=== PATIENT | male | born 1970 | race Caucasian/White ===

== ENCOUNTER 2016-09-07 10:17 | Emergency (ER) | payer OTHER ==
--- NOTE | ~2016-09-07 | CR173 ---
[facility] A Service of [facility] RADIOLOGY TEXT RESULTS PATIENT: AN GAYLE LOCATION: SED : [birth year] UNIT #: [id number] AGE: [address]: Mark Hyde MD SEX: M ORDER DR: [id number] [place] [id number] E MR#: [id number] Acc #: [id number] NAME: AN GAYLE : 1970 SEX: M STUDY DATE/TIME: 09/07/2016 10:26 UNIT: SED ROOM: STUDY DESCRIPTION: CR Knee 3 Views Rt Attending Physician: Mark Hyde M.D. Ordering Physician: Mark Hyde M.D. Primary Care Physician: Griselda Geller A.P.R.N. MEDICAL IMAGING REPORT This report is preliminary unless electronic signature is present. EXAM Right knee series 09/07/2016. HISTORY 46-year-old male in the ED with knee pain after a fall from ladder yesterday. TECHNIQUE Three-view right knee series. FINDINGS No fracture, dislocation or other acute osseous abnormality is demonstrated. 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 No change since 11/25/2013. IMPRESSION 1. No acute osseous abnormality. 2. Alnk-hm-upqrccsk tricompartment degenerative arthropathy. 3. No change since 11/25/2013. Dictated by... Chester Fish M.D. THIS IS AN ELECTRONICALLY VERIFIED REPORT Chester Fish M.D. at 09/08/2016 8:40 AM RGW/pcl [facility] A Service [facility] RADIOLOGY TEXT RESULTS PATIENT: AN GAYLE LOCATION: SED : 70 UNIT #: [id number] AGE: [address]: Mark Hyde MD SEX: M ORDER DR: TD: 09/07/2016 18:02 JOB #: [id number] MEDICAL IMAGING REPORT
--- NOTE | ~2016-09-07 | CR93 ---
[facility] A Service of [facility] RADIOLOGY TEXT RESULTS PATIENT: AN GAYLE LOCATION: SED : [birth year] UNIT #: [id number] AGE: [address]: Mark Hdye MD SEX: M ORDER DR: [id number] [place] [id number] E MR#: [id number] Acc #: [id number] NAME: AN GAYLE : 1970 SEX: M STUDY DATE/TIME: 09/07/2016 10:26 UNIT: SED ROOM: STUDY DESCRIPTION: CR Elbow Min 3 Views Lt Attending Physician: Mark Hyed M.D. Ordering Physician: Mark Hyde M.D. Primary Care Physician: Griselda Geller A.P.R.N. MEDICAL IMAGING REPORT This report is preliminary unless electronic signature is present. EXAM Left elbow series 09/07/2016 HISTORY 46-year-old male in the ED with elbow pain after fall from ladder yesterday. TECHNIQUE Three-view left elbow series. FINDINGS No fracture, dislocation or other acute osseous abnormality. Gieh-hv-thqlqprd degenerative arthropathy, primarily visible on the medial elbow joint margin. No visible joint effusion. IMPRESSION No acute osseous abnormality. Degenerative arthropathy. Dictated by... Chester Fish M.D. THIS IS AN ELECTRONICALLY VERIFIED REPORT Chester Fish M.D. at 09/08/2016 8:40 AM RGW/pcl TD: 09/07/2016 16:23 JOB #: [id number] [facility] A Service of [facility] RADIOLOGY TEXT RESULTS PATIENT: AN GAYLE LOCATION: SED : [birth year] UNIT #: [id number] AGE: [address]: Mark Hyde MD SEX: M ORDER DR: MEDICAL IMAGING REPORT
[~2016-09-07 10:17] MED LIST: ALAVERT10 M1 PO; ANTIVERT PO; AZULFIDINE PO; BENTYL10 MG PO; FLEXERIL10 MG PO; FLUTICASONE; FOLIC ACID1 MG PO; GABAPENTIN300 MG PO; IBUPROFEN800 MG PO; KEFLEX PO; MEDROL PO; NAPROXEN PO; ZOFRANODT PO
== END 2016-09-07 11:20 | disposition home or self-care (01) ==
LOC: SED 10:17
DX: S33.5XXA Sprain of ligaments of lumbar spine, initial encounter (principal); S80.01XA Contusion of right knee, initial encounter; S50.02XA Contusion of left elbow, initial encounter; W10.9XXA Fall (on) (from) unspecified stairs and steps, initial encounter
CPT/HCPCS: 73080; 73562; 99284